=== PATIENT | male | born 1970 | race Hispanic/Latino ===

== ENCOUNTER → 2022-04-19 | Day surgery (SDC) | payer OTHER ==
[~2022-04-19] MED LIST: DEXMEDETOMIDINE HCL 2 ML ONE; HYDROCHLOROTHIA25 MG PO; HYOSCYAMINE SULFATE 0.5 MG/ML INJ ONE; LISINOPRIL10 MG PO; PROPOFOL IV EMULSION 10 MG/ML 20 ML VIAL ONE
[2022-04-19 15:25] VITALS: BP 127/70
== END | disposition home or self-care (01) ==
LOC: OR 10:42
PROVIDERS: ATTEND Internal Medicine Gastroenterology
DX: K29.70 Gastritis, unspecified, without bleeding (principal); D12.2 Benign neoplasm of ascending colon; D12.5 Benign neoplasm of sigmoid colon; K20.90 Esophagitis, unspecified without bleeding; K64.8 Other hemorrhoids; Z71.3 Dietary counseling and surveillance; I10 Essential (primary) hypertension; Z88.8 Allergy status to other drugs, medicaments and biological substances; Z01.810 Encounter for preprocedural cardiovascular examination; Z79.899 Other long term (current) drug therapy; Z68.32 Body mass index [BMI] 32.0-32.9, adult; Z86.16 Personal history of COVID-19
CPT/HCPCS: 43239; 45385; 93005; C9113; J1980; J2704; 45378

== ENCOUNTER → 2022-04-27 | Outpatient (CLI) | payer OTHER ==
[~2022-04-27] MED LIST changes: -DEXMEDETOMIDINE HCL 2 ML ONE; -HYOSCYAMINE SULFATE 0.5 MG/ML INJ ONE; -PROPOFOL IV EMULSION 10 MG/ML 20 ML VIAL ONE
== END ==
LOC: US 15:35
PROVIDERS: ATTEND Internal Medicine Gastroenterology
DX: R10.84 Generalized abdominal pain (principal)
CPT/HCPCS: 76700; 76856

== ENCOUNTER → 2024-11-22 | Outpatient (REF) | payer BC, OTHER ==
[~2024-11-22] MED LIST changes: +AMLODIPINE BESYL5 MG PO; +CIALIS5 MG PO; +LISINOPRIL-HCT1 EAC2; +METOCLOPRAMIDE H5 MG PO; +PROTONIX20 MG PO
== END ==
LOC: RAD 12:00 → EDSTATUS 11-24 06:00
PROVIDERS: ATTEND Internal Medicine Gastroenterology
DX: Z01.810 Encounter for preprocedural cardiovascular examination (principal); I10 Essential (primary) hypertension; R10.13 Epigastric pain; R14.0 Abdominal distension (gaseous)
CPT/HCPCS: 93005

== ENCOUNTER → 2025-03-01 | Day surgery (SDC) | payer BC ==
[~2025-03-01] MED LIST changes: +LACTATED RINGER'S 1,000 ML ONE; +LIDOCAINE HCL 2% LOCAL INJ 5 ML SDV VIAL INJ ONE; +MIDAZOLAM HCL 2 MG/2 ML VIAL ONE; +PROPOFOL IV EMULSION 10 MG/ML 20 ML VIAL ONE
[2025-03-01 11:49] VITALS: BP 122/78; PULSE 78; RESP 18; O2SAT 97
== END | disposition home or self-care (01) ==
LOC: OR 09:40
PROVIDERS: ATTEND Internal Medicine Gastroenterology
DX: K21.9 Gastro-esophageal reflux disease without esophagitis (principal); K29.50 Unspecified chronic gastritis without bleeding; K31.A11 Gastric intestinal metaplasia without dysplasia, involving the antrum; K44.9 Diaphragmatic hernia without obstruction or gangrene; I10 Essential (primary) hypertension; N20.0 Calculus of kidney; Z79.899 Other long term (current) drug therapy; Z68.34 Body mass index [BMI] 34.0-34.9, adult; Z87.898 Personal history of other specified conditions
CPT/HCPCS: 43239; J2003; J2250; J2704; J7121